=== PATIENT | male | born 1935 | race Two or more races ===

== ENCOUNTER 2021-04-02 05:13 | Day surgery (SDC) | payer OTHER, MEDICARE ==
[2021-03-31 16:34] VITALS: BMI 23.2
[2021-04-02] MEDS ORDERED: PROPOFOL 20 ML ONE (08:08)
[2021-04-02] MEDS ORDERED: SUCCINYLCHOLINE CHLORIDE 200 MG/10 ML SYRINGE ONE (08:09)
[2021-04-02] MEDS ORDERED: MIDAZOLAM HCL 2 MG/2 ML SINGLE DOSE VIAL ONE ×2 (09:53)
[2021-04-02] MEDS ORDERED: GENTAMICIN SO4 80 MG/2 ML VIAL ONE (10:20)
[2021-04-02] MEDS ORDERED: ceFAZolin 2 GRAM PREMIX BAG IVPB ONE (10:20)
[2021-04-02] MEDS ORDERED: GENTAMICIN SO4 80 MG/2 ML VIAL IVPB ONE (10:25)
[2021-04-02] MEDS ORDERED: ELECTROLYTE-148 SOLN 1,000 ML IV SCH (11:30)
[2021-04-02] MEDS ORDERED: ONDANSETRON 4 MG/2 ML VIAL IVPUSH PRN (11:39)
[2021-04-02] MEDS ORDERED: LACTATED RINGERS SOLUTION 1,000 ML IV SCH (11:45)
[2021-04-02 16:31] VITALS: BP 112/60; PULSE 52; TEMP 97
[2021-04-16 08:02] LABS: SIZE 2X2; WEIGHT 121.0 MG
[2021-04-16 08:03] LABS: CA OXALATE MONOHYDR. 90%
== END 2021-04-02 15:30 | disposition home or self-care (01) ==
LOC: JASU-SURG 05:13
PROVIDERS: ATTEND Urology
PROC: 0T7D8ZZ Dilation of Urethra, Via Natural or Artificial Opening Endoscopic (ICD-10-PCS; principal; 2021-04-02 10:00)
PROC: 0VT08ZZ Resection of Prostate, Via Natural or Artificial Opening Endoscopic (ICD-10-PCS; 2021-04-02 10:00)
PROC: 0TCB8ZZ Extirpation of Matter from Bladder, Via Natural or Artificial Opening Endoscopic (ICD-10-PCS; 2021-04-02 10:00)
DX: N40.0 Benign prostatic hyperplasia without lower urinary tract symptoms (principal); N32.89 Other specified disorders of bladder; N21.0 Calculus in bladder; N35.911 Unspecified urethral stricture, male, meatal
CPT/HCPCS: 36415; 82360; 88300-TC; 88305-TC; 94760